=== PATIENT | female | born 1995 | race Caucasian/White ===

== ENCOUNTER 2018-12-26 07:35 | Day surgery (SDC) | payer OTHER ==
[2018-12-26] MEDS: SOD CHLORIDE 0.9% 1,000 ML IV (07:00)
[~2018-12-26 07:35] MED LIST: SOD CHLORIDE 0.9% 1,000 ML IV
[2018-12-26] MEDS: CEFAZOLIN 2 GM/50 ML (PMX) 50 ML IVPB ×2 (08:10)
[2018-12-26] MEDS ORDERED: LIDOCAINE 2% (SDV) 5 ML INJ (09:19)
[2018-12-26] MEDS ORDERED: MIDAZOLAM 1 MG/ML 2 ML INJ (09:19)
[2018-12-26] MEDS ORDERED: CEFAZOLIN 1 GM INJ (09:19)
[2018-12-26] MEDS ORDERED: FENTAnyl 50 MCG/ML VIAL ×2 (09:19→10:08)
[2018-12-26] MEDS ORDERED: DESFLURANE 15 MIN (09:19)
[2018-12-26] MEDS ORDERED: METOCLOPRAMIDE 10 MG INJ (09:19)
[2018-12-26] MEDS ORDERED: PROPOFOL 20 ML (09:19)
[2018-12-26] MEDS ORDERED: ONDANSETRON 4 MG INJ (09:53)
[2018-12-26] MEDS ORDERED: DEXAMETHASONE 4 MG/ML 5 ML INJ (09:53)
[2018-12-26] MEDS ORDERED: FAMOTIDINE 20 MG INJ (09:53)
[2018-12-26] MEDS ORDERED: OXYCODONE/ACETAMINOPHEN (5/325) TAB PO ×2 (10:30)
[2018-12-26] MEDS ORDERED: HYDROmorphONE 1 MG/5 ML IV SYRINGE IV (10:30)
[2018-12-26] MEDS ORDERED: MEPERIDINE 25 MG INJ IV (10:30)
[2018-12-26] MEDS ORDERED: HYDROCODONE/APAP (7.5/325) TAB PO (11:00)
[2018-12-26] MEDS: HYDROmorphONE 1 MG/5 ML IV SYRINGE IV ×2 (11:06→11:43)
[2018-12-26] MEDS: ONDANSETRON 4 MG INJ IV (11:07)
== END 2018-12-26 13:33 | disposition home or self-care (01) ==
LOC: SDS 07:35
DX: D24.1 Benign neoplasm of right breast (principal)
CPT/HCPCS: 19120; 88307